=== PATIENT | male | born 1990 | race Caucasian/White ===

== ENCOUNTER 2023-06-16 15:16 | Emergency (ER) | payer OTHER ==
[~2023-06-16] VITALS: Ht 180.3 cm; Wt 81.6 kg
[2023-06-16] MEDS ORDERED: SULFADIAZINE500 M1 PO (17:12)
== END 2023-06-16 19:43 | disposition home or self-care (01) ==
LOC: ED 15:16
DX: S90.31XA Contusion of right foot, initial encounter (principal); W22.8XXA Striking against or struck by other objects, initial encounter; Y93.39 Activity, other involving climbing, rappelling and jumping off; Y92.89 Other specified places as the place of occurrence of the external cause; Y99.8 Other external cause status

== ENCOUNTER 2023-10-16 13:35 | Emergency (ER) | payer OTHER ==
[~2023-10-16] VITALS: Ht 180.3 cm; Wt 82.6 kg
[~2023-10-16 13:35] MED LIST: SULFADIAZINE500 M1 PO
[2023-10-16] MEDS ORDERED: Tdap Vaccine 0.5 ML SYR (Adult Vaccine) IM ONE (13:45)
[2023-10-16] MEDS ORDERED: ceFAZolin sodium 1 GM VIAL IM ONE (14:00)
[2023-10-16] MEDS ORDERED: CEPHALEXIN500 M1 PO (15:17)
[2023-10-16] MEDS ORDERED: Water, Sterile 10 ML VIAL ONE (15:30)
[2023-10-16] MEDS ORDERED: Water, Sterile 10 ML VIAL IM ONE (15:50)
== END 2023-10-16 15:36 | disposition home or self-care (01) ==
LOC: ED 13:35
DX: S61.511A Laceration without foreign body of right wrist, initial encounter (principal); W26.9XXA Contact with unspecified sharp object(s), initial encounter; Y93.89 Activity, other specified; Y92.89 Other specified places as the place of occurrence of the external cause; Y99.1 Military activity

== ENCOUNTER 2025-03-17 10:31 | Emergency (ER) | payer OTHER ==
[~2025-03-17] VITALS: Wt 90.7 kg
[~2025-03-17 10:31] MED LIST changes: +CEPHALEXIN500 M1 PO
[2025-03-17 11:45] LABS: BASO # 0.1 10*3/uL (0.0-0.1); BASO % 0.8 % (0.0-1.0); EOS # 0.2 10*3/uL (0.0-0.4); EOS % 1.7 % (1.0-4.0); MEAN CELL VOLUME 93.9 fl (80.0-94.0); MEAN CORPUSCULAR HGB 32.2 pg (27.0-31.0); MEAN PLATELET VOLUME 8.7 fl (9.6-12.3); MONO # 1.1 10*3/uL (0.1-1.0); MONO % 11.9 % (3.0-9.0); NEUT # 5.0 10*3/uL (2.3-7.9); NEUT % 53.7 % (47.0-73.0); NUCLEATED RED BLOOD CELL 0.0 % (0.0-0.0); NUCLEATED RED BLOOD CELL 0.0 10*3/uL (0.0-0.0); PLATELET COUNT AUTOMATED 284 10*3/uL (130-400); RED CELL DISTRI WIDTH 12.4 % (0-14.5)
[2025-03-17 12:06] LABS: SGPT/ALT 50.0 U/L (5-49)
[2025-03-17 12:17] LABS: BUN 11 mg/dl (9-23)
[2025-03-17 12:20] LABS: CPK 2449 U/L (34-171)
[2025-03-17] MEDS ORDERED: SODIUM CHLORIDE 0.9% 1,000 ML IV ONE (12:45)
== END 2025-03-17 13:02 | disposition left against medical advice (07) ==
LOC: ED 10:31
PROVIDERS: Emergency Medicine
DX: R07.89 Other chest pain (principal); T37.1X5A Adverse effect of antimycobacterial drugs, initial encounter; R20.2 Paresthesia of skin; R51.9 Headache, unspecified; R06.02 Shortness of breath; M62.82 Rhabdomyolysis; R74.01 Elevation of levels of liver transaminase levels; Z79.899 Other long term (current) drug therapy; Y92.89 Other specified places as the place of occurrence of the external cause